=== PATIENT | female | born 1970 | race Caucasian/White ===

== ENCOUNTER 2022-07-20 19:57 | Inpatient (IN) | payer MEDICAID ==
[~2022-07-20] VITALS: Ht 154.9 cm; Wt 53.8 kg
[2022-07-21] MEDS ORDERED: ZOLPIDEM TARTRATE 10 MG TABLET PO PRN (01:00)
[2022-07-21] MEDS ORDERED: HALOPERIDOL 5 MG TABLET PO PRN (01:00)
[2022-07-21 01:56] VITALS: BP 126/77
[2022-07-21 07:12] LABS: BASOPHILS % (AUTO) 0.9 % (0.0-2.0); HEMATOCRIT 40.7 % (36-46); HEMOGLOBIN 13.6 g/dL (12.0-16.0); LYMPHOCYTES # (AUTO) 1.8 K/uL (1.0-4.8); LYMPHOCYTES % (AUTO) 32.1 % (22.0-44.0); MEAN CORPUSCULAR HEMOGLOBIN 30.8 pg (26.0-34.0); MEAN CORPUSCULAR HGB CONC 33.3 G/dL (31.0-37.0); MEAN CORPUSCULAR VOLUME 92 fL (80-100); MONOCYTES # (AUTO) 0.5 K/uL (0.1-1.0); MONOCYTES % (AUTO) 9.1 % (2.0-9.0); NEUTROPHILS # (AUTO) 3.1 K/uL (1.8-7.7); NEUTROPHILS % (AUTO) 55.9 % (40.0-70.0); PLATELET COUNT (AUTO) 309 K/uL (150-450); RED BLOOD CELL COUNT(AUTO) 4.41 MIL/uL (4.00-5.20); RED CELL DISTRIBUTION WIDTH 13.5 % (11.5-14.5)
[2022-07-21 08:20] VITALS: BP 121/86
[2022-07-21 08:52] LABS: ALANINE AMINOTRANSFERASE 21 U/L (12-78); ALBUMIN 3.5 g/dL (3.4-5.0); ALKALINE PHOSPHATASE 53 U/L (46-116); ANION GAP 9 mmol/L (8-16); ASPARTATE AMINOTRANSFERASE 17 U/L (15-37); BILIRUBIN,TOTAL 0.2 mg/dL (0.1-1.0); CALCIUM, TOTAL 9.1 mg/dL (8.8-10.5); CARBON DIOXIDE 29 mmol/L (22-29); CHLORIDE 106 mmol/L (98-107); CHOL/HDL RATIO 4.1 (3.9-5.7); CHOLESTEROL 212 mg/dL (131-200); CREATININE 0.84 mg/dL (0.60-1.30); FREE T4 (FREE THYROXINE) 0.93 ng/dL (0.76-1.46); GLUCOSE,RANDOM 99 mg/dL (70-110); HCG,QUANTITATIVE 1 mIU/mL (0-6); HDL CHOLESTEROL 52 mg/dL (40-60); LDL CHOL (CALC.) 132 mg/dL (0-130); POTASSIUM 4.3 mmol/L (3.5-5.1); SODIUM SERUM 144 mmol/L (136-145); TOTAL PROTEIN, SERUM 6.7 g/dL (6.4-8.2); TRIGLYCERIDES 142 mg/dL (15-150); UREA NITROGEN, BLOOD 21 mg/dL (7-18)
[2022-07-21 08:53] LABS: GLOMERULAR FILTR. RATE CALC > 60 mL/min (>60)
[2022-07-21 09:18] LABS: HEMOGLOBIN A1C 5.1 % (3.8-5.6)
[2022-07-21] MEDS ORDERED: BUPR-317 PO (09:27)
[2022-07-21] MEDS ORDERED: ESCI20TA37 PO (09:27)
[2022-07-21] MEDS ORDERED: MAGNESIUM HYDROXIDE SUSPENSION 30 ML UDCUP PO PRN (10:30)
[2022-07-21] MEDS ORDERED: ALBUTEROL SULFATE HFA 90 MCG/PUFF 8 GM INHALER IH PRN (10:30)
[2022-07-21] MEDS ORDERED: IBUPROFEN 400 MG TABLET PO PRN (10:30)
[2022-07-21] MEDS ORDERED: LOPERAMIDE HCL 2 MG CAPSULE PO PRN (10:30)
[2022-07-21] MEDS ORDERED: MAG HYDROX/AL HYDROX/SIMETH ES 30 ML SUSPENSION UDCUP PO PRN (10:30)
[2022-07-21] MEDS ORDERED: PETROLATUM,WHITE 28 GM JELLY TP PRN (10:30)
[2022-07-21] MEDS ORDERED: CloNIDine HCL 0.1 MG TABLET PO PRN (10:30)
[2022-07-21] MEDS ORDERED: ONDANSETRON HCL 4 MG TABLET PO PRN (10:30)
[2022-07-21] MEDS ORDERED: NICOTINE 14 MG/24 HOUR PATCH TD PRN (10:30)
[2022-07-21] MEDS ORDERED: DOCUSATE SODIUM 100 MG CAPSULE PO PRN (10:30)
[2022-07-21] MEDS ORDERED: GuaiFENesin/D-METHORPHAN [SUGAR-FREE] 200-20MG/10 ML SYRUP UDCUP PO PRN (10:30)
[2022-07-21] MEDS ORDERED: ACETAMINOPHEN 325 MG TABLET PO PRN (10:30)
[2022-07-21] MEDS: VENLAFAXINE HCL 75 MG ER CAPSULE PO SCH (11:07)
[2022-07-21] MEDS: BuPROPion HCL XL 150 MG ER TABLET PO SCH (11:07)
[2022-07-21] MEDS: GABAPENTIN 100 MG CAPSULE PO SCH (11:07)
[2022-07-21] MEDS: LORazepam 1 MG TABLET PO PRN (12:41)
[2022-07-21 18:43] VITALS: BP 110/72
[2022-07-22] MEDS: VENLAFAXINE HCL 75 MG ER CAPSULE PO SCH (09:15)
[2022-07-22] MEDS: BuPROPion HCL XL 150 MG ER TABLET PO SCH (09:16)
[2022-07-22] MEDS: GABAPENTIN 100 MG CAPSULE PO SCH (09:19)
[2022-07-22] MEDS: MULTIVITAMINS WITH MINERALS, THERAPEUTIC TABLET PO SCH (09:20)
[2022-07-22] MEDS: LORazepam 1 MG TABLET PO PRN (09:30)
[2022-07-22 20:38] VITALS: BP 123/67
[2022-07-23 08:00] VITALS: BP 115/75
[2022-07-23] MEDS: MULTIVITAMINS WITH MINERALS, THERAPEUTIC TABLET PO SCH (08:32)
[2022-07-23] MEDS: GABAPENTIN 100 MG CAPSULE PO SCH (08:32)
[2022-07-23] MEDS ORDERED: VENLAFAXINE HCL 75 MG ER CAPSULE PO SCH (09:00)
[2022-07-23] MEDS ORDERED: VENL-67 PO (10:41)
[2022-07-23] MEDS ORDERED: GABA-1216 PO (10:41)
[2022-07-23] MEDS: LORazepam 1 MG TABLET PO PRN (11:06)
== END 2022-07-23 13:25 | disposition left against medical advice (07) | DRG 751 ==
LOC: B3A 07-21 01:00
PROVIDERS: ADMIT Psychiatry & Neurology Psychiatry; ATTEND Psychiatry & Neurology Psychiatry
DX: F33.2 Major depressive disorder, recurrent severe without psychotic features (principal); R45.851 Suicidal ideations; F41.9 Anxiety disorder, unspecified; G47.00 Insomnia, unspecified; R10.13 Epigastric pain; Z81.8 Family history of other mental and behavioral disorders; Z79.899 Other long term (current) drug therapy
CPT/HCPCS: 80053; 80061; 83036; 84439; 84443; 84702; 85025; 87081